=== PATIENT | male | born 1975 | race Caucasian/White ===

== ENCOUNTER 2018-05-08 15:11 | Emergency (ER) | payer MEDICAID ==
[2018-05-08 15:18] VITALS: BP 177/108
[2018-05-08] MEDS ORDERED: CHLORDIAZEPOXIDE 25MG PREPK#6 BTL TAKEHOME ONE (15:27)
--- NOTE | 2018-05-08 15:28 | EDPHY ---
HPI/HX/ROS/PE/MDM Narrative: CHIEF COMPLAINT: Needs Librium for [facility] HPI: The patient is a 42 y/o male with a history of alcoholism who arrives at the request of the detox center to get a prescription for Librium so he can check into their facility. He was evaluated at two separate hospitals in the last 24 hours where he had lab work, chest x-ray, leg x-ray, and a leg ultrasound performed and was told all these tests were normal. He is planning to go into group home treatment for alcoholism and was told he needed to go to the [facility] for 2 days first. When he attempted to check in there he was advised to go to the ED to get Librium first. His last alcohol use was two days ago. He has no acute complaints and does not want any additional work up here. PMH: Alcoholism, asthma, sleep apnea, morbid obesity SOCIAL HISTORY: Unemployed. Single. Lives in [place]. Prior medical records reviewed including ED visit 02/27/15 for alcohol withdrawal. PHYSICAL EXAM: General:Patient is alert, in no acute distress. ENT:Eyes are normal to inspection. ENT inspection normal. Extremities: Normal appearance. Full range of motion. Neuro: Oriented x3. Normal motor function. Normal sensory function. ED Course: 42 y/o male with history of alcoholism who was told to come to the ED for a Librium prescription before he would be allowed to check into the [facility] detox facility. He is asymptomatic and has no complaints. He does not want any further treatment or evaluation here, only a script for Librium so he can enter detox. Script for Librium provided. He will be discharged to the [facility]. Standard return precautions discussed. General Time Seen by Provider: 05/08/18 15:24 Initial Vital Signs: Initial Vital Signs Temperature (C) 36.4 C 05/08/18 15:15 Heart Rate 88 05/08/18 15:15 Respiratory Rate 16 05/08/18 15:15 Blood Pressure 177/108 H 05/08/18 15:15 O2 Sat (%) 95 05/08/18 15:15 O2 Delivery Mode Room Air Allergies/Adverse Reactions: Tetanus Vaccines and Toxoid [Tetanus Vaccines & Toxoid] Allergy (Verified 15:18) Home Medications: Medication Instructions Recorded Albuterol Hfa Anes Only 02/27/15 Omeprazole 02/27/15 Metoprolol Succinate 05/08/18 Departure - Departure Disposition: Home, Routine, Self-Care Clinical Impression: Medication refill Condition: Good Instructions: Medicine Refill (ED) Additional Instructions: Use Librium as prescribed for withdrawal symptoms. Go directly to the [facility] for detox. Follow up with your primary care provider as needed. Return to the ED for worsening of condition. Referrals: [facility] [Outside] - As per Instructions Report Scribed for: Paul Castro Report Scribed by: Tiffany Morris Date of Report: 05/08/18 Time of Report: 15:29 Physician Review and Approval Statement: Portions of this note were transcribed by an ED scribe. I personally performed the history, physical exam, and medical decision making; and confirm the accuracy of the information in the transcribed note.
== END 2018-05-08 16:03 | disposition home or self-care (01) ==
DX: Z76.0 Encounter for issue of repeat prescription (principal); F10.10 Alcohol abuse, uncomplicated

== ENCOUNTER 2018-07-13 14:31 | Emergency (ER) | payer MEDICAID, OTHER ==
[2018-07-13 14:46] VITALS: BP 184/115
--- NOTE | 2018-07-13 14:52 | EDPHY ---
H & P Time Seen by Provider: 07/13/18 14:41 HPI/ROS: CHIEF COMPLAINT: Staple removal, requesting Librium HISTORY OF PRESENT ILLNESS: 42-year-old male drove himself to the ER. States that 7 days ago he sustained a mechanical fall while in [place], stapled in the right occipital region at a hospital in [place], in the ER for staple removal. He would also like prescription for Librium noting that he would like to detox from alcohol and go to [facility]. Denies: Hallucination, headache, nausea, vomiting, gait instability, slurred speech, abdominal pain. PHYSICAL EXAM (Prior to examination, patient consented to physical exam, hands were washed and my usual and customary physical exam procedures followed) 1) GENERAL: Well-developed, well-nourished, alert and oriented. Appears to be in no acute distress. Observed ambulating stable steady gait. 2) HEAD: Normocephalic. Well-granulated wound right occipital region with skylar in place. No signs of infection. No dehiscence. 3) HEENT: sclera anicteric 4) LUNGS: Breathing comfortably. Smoking Status: Heavy smoker Constitutional: Initial Vital Signs Temperature (C) 36.8 C 07/13/18 14:33 Heart Rate 103 H 07/13/18 14:33 Respiratory Rate 19 07/13/18 14:33 Blood Pressure 184/115 H 07/13/18 14:33 O2 Sat (%) 95 07/13/18 14:33 Allergies/Adverse Reactions: Tetanus Vaccines and Toxoid [Tetanus Vaccines & Toxoid] Allergy (Verified 15:18) Home Medications: Medication Instructions Recorded Albuterol Hfa Anes Only 02/27/15 Omeprazole 02/27/15 Metoprolol Succinate 05/08/18 MDM/Departure - MDM ED Course/Re-evaluation: Patient skylar have been removed by ER staff. Wound has granulated in healed appropriately for age. Regarding his request to go to the [facility], he would like to be discharged and is going to think about whether he would like to go to the [facility] not. He does have a means of transportation and states that he may drive himself directly to the [facility]. No Librium prescription given at this time. Doubt delirium tremens at this time. - Depart Disposition: Home, Routine, Self-Care Clinical Impression: Removal of staple Condition: Good Instructions: Staple Care (ED) Referrals: [facility] [Outside] - As per Instructions
== END 2018-07-13 15:02 | disposition home or self-care (01) ==
DX: S01.01XD Laceration without foreign body of scalp, subsequent encounter (principal); W19.XXXD Unspecified fall, subsequent encounter; Y99.9 Unspecified external cause status